=== PATIENT | male | born 1935 | race Caucasian/White ===

== ENCOUNTER 2016-09-17 10:40 | Emergency (ER) | payer OTHER ==
[~2016-09-17] VITALS: Ht 170.2 cm; Wt 110.0 kg
[2016-09-17 10:44] VITALS: Ht 170.2 cm; Wt 110.0 kg
[2016-09-17] MEDS ORDERED: CEPHALEXIN 500 MG CAP PO ONE (11:30)
[2016-09-17] MEDS ORDERED: TRIMETHOPRIM/SULFAMETHOX (DS) TAB PO ONE (11:30)
--- NOTE | 2016-09-17 11:38 | RADRPT ---
PROCEDURE: US Lower extremity Venous. CLINICAL INDICATION: Left leg edema and redness TECHNIQUE: Multiple sonographic images of the left lower extremity deep venous system was obtained utilizing grayscale, color-flow, compressive sonography and doppler imaging with augmentation. The images were reviewed on a PACS workstation. COMPARISON: None. FINDINGS: There is normal compressibility and flow within the left common femoral, femoral, posterior tibial, peroneal and popliteal veins. RPTAT: AA IMPRESSION: No sonographic evidence for deep venous thrombosis. .Carroll Tatum MD, MD Date Time Electronically viewed and signed by .Carroll Tatum MD, on 09/17/2016 11:38 .S/
[2016-09-17] MEDS ORDERED: SULF1TAB31 PO (11:40)
[2016-09-17] MEDS ORDERED: CEPH-443 PO (11:40)
--- NOTE | 2016-09-17 13:20 | ERD ---
ER Documentation Chief Complaint Date/Time DATE: 09/17/16 TIME: 13:17 Chief Complaint Pt referred by PCP for B LE erythmema and non healing ulcer L calf. HPI Patient is an 80-year-old male with diabetes who presents with left leg redness. He has had these symptoms for the past 3 weeks and they were getting worse. He has not had any antibiotics as of yet. He denies fevers. He has no pain. He was sent by his primary doctor Dr. Estrada for ultrasound to rule out DVT. He does not want to stay in the hospital. Upon review of old medical records this is the patient's first visit to the emergency department. ROS All systems reviewed and are negative except as per history of present illness. Medications Home Meds Active Scripts Cephalexin* (Keflex*) 500 Mg Capsule, 500 MG PO QID for 7 Days, CAP Prov:BHAVIK MCCARTNEY MD 09/17/16 Sulfamethoxazole/Trimethoprim* (Bactrim Ds* Tablet) 1 Each Tablet, 1 TAB PO BID , #14 TAB Prov:BHAVIK MCCARTNEY MD 09/17/16 Allergies Allergies: Coded Allergies: No Known Allergy (Unverified , 09/17/16) PMhx/Soc Positive for diabetes Hx Alcohol Use: No Hx Substance Use: No Hx Tobacco Use: No Smoking Status: Never smoker FmHx Family History: diabetes Physical Exam Vitals Vital Signs Date Time Temp Pulse Resp B/P Pulse Ox O2 Delivery O2 Flow Rate FiO2 09/17/16 10:44 97.7 66 18 153/72 96 Physical Exam Const: No acute distress Head: Atraumatic Eyes: Normal Conjunctiva ENT: Normal External Ears, Nose and Mouth. Neck: Full range of motion..~ No meningismus. Resp: Clear to auscultation bilaterally Cardio: Regular rate and rhythm, no murmurs Abd: Soft, non tender, non distended. Normal bowel sounds Skin: Diffuse redness of the left calf with breakdown of the epidermis behind the left calf, no crepitus noted Back: No midline or flank tenderness Ext: No cyanosis, or edema Neur: Awake and alert Psych: Normal Mood and Affect Results 24 hrs Current Medications Medications (Trade) Dose Ordered Sig/Trang Route PRN Reason Start Time Stop Time Status Last Admin Dose Admin Trimethoprim/ Sulfamethoxazole (Bactrim (Ds)) 1 tab ONCE ONCE PO 09/17/16 11:30 09/17/16 11:31 DC 09/17/16 11:32 Cephalexin (Keflex) 500 mg ONCE ONCE PO 09/17/16 11:30 09/17/16 11:31 DC 09/17/16 11:32 Procedures/MDM Ultrasound of left lower extremity negative for DVT per radiology. Patient is a 80-year-old male who presents with acute cellulitis of the left lower extremity. He has diabetes. I did want to admit him to the hospital for IV antibiotics but he is adamantly refusing. His exam is negative for DVT. At this point it is reasonable to try an outpatient course of antibiotics with Bactrim and Keflex and I spoke with Dr. Estrada who will see the patient in 2 days for repeat check. He was seen by our strategic marketing specialist in the emergency department who dressed the wound and gave recommendations. The patient could return for fevers or any worsening symptoms. At this point I doubt sepsis or systemic infection. I doubt DVT. Departure Diagnosis: Primary Impression: Cellulitis Site of cellulitis: extremity Site of cellulitis of extremity: lower extremity Laterality: left Qualified Code: L03.116 - Cellulitis of left lower extremity Condition: Fair Patient Instructions: Cellulitis Referrals: DENISSE ESTRADA MD Additional Instructions: Call your primary care doctor TOMORROW for an appointment during the next 1-2 days.See the doctor sooner or return here if your condition worsens before your appointment time. BHAVIK MCCARTNEY MD Sep 17, 2016 13:19
== END 2016-09-17 14:32 | disposition home or self-care (01) ==
LOC: E/R 10:40
DX: L03.116 Cellulitis of left lower limb (principal)
CPT/HCPCS: 93971; 99284